=== PATIENT | female | born 1955 | race Caucasian/White ===

== ENCOUNTER 2018-01-14 20:52 | Emergency (ER) | payer BC ==
[2018-01-14 21:05] VITALS: BP 191/84
[2018-01-14] MEDS ORDERED: ONDANSETRON 4 MG TAB.RAPDIS PO ONE (21:27)
--- NOTE | 2018-01-14 21:33 | ER Document Report ---
HPI - HPI Patient complains to provider of: Out of Effexor, Plavix, and blood pressure medications Onset: Other Onset/Duration: Gradual - 2 days Quality of pain: Other - Achy all over Severity: Moderate Pain Level: 3 Context: Patient states she ran out of her Plavix 75 mg p.o. daily losartan 25 mg daily and Effexor 12.5 mg daily 2 days ago. She states running out of the losartan has made her nauseated and vomiting. She states that her doctor has called prescriptions for the Effexor into the local [facility] but she will need the other 2 medications until she can return home. Associated Symptoms: Body/muscle aches, Nausea, Vomiting Exacerbated by: Other Relieved by: Denies Similar symptoms previously: Yes Recently seen / treated by doctor: No - ROS ROS below otherwise negative: Yes - CONSTITUTIONAL Constitutional: DENIES: Fever, Chills - EENT EENT: DENIES: Sore Throat, Ear Pain, Nasal Drainage-Clear, Nasal Drainage- Purulent, Congestion, Eye problems - NEURO Neurology: DENIES: Headache, Weakness, Vision blurred, Dizzinesss / Vertigo - CARDIOVASCULAR Cardiovascular: DENIES: Chest pain - RESPIRATORY Respiratory: DENIES: Trouble Breathing, Coughing - GASTROINTESTINAL Gastrointestinal: DENIES: Abdominal Pain, Nausea, Patient vomiting, Diarrhea, Constipation, Black / Bloody Stools - URINARY Urinary: DENIES: Dysuria, Urgency, Frequency - REPRODUCTIVE Reproductive: DENIES: :, Postmenopausal, Abnormal bleeding / discharge - MUSCULOSKELETAL Musculoskeletal: DENIES: Extremity pain, Back Pain, Neck Pain, Swelling - DERM Skin Color: Normal Skin Problems: None Past Medical History - General Information source: Patient - Social History Smoking Status: Never Smoker Cigarette use (# per day): No Chew tobacco use (# tins/day): No Smoking Education Provided: No Frequency of alcohol use: None Drug Abuse: None Lives with: Family Family History: Reviewed & Not Pertinent Patient has suicidal ideation: No Patient has homicidal ideation: No - Past Medical History Cardiac Medical History: Reports: Hx Hypertension Pulmonary Medical History: Reports: None EENT Medical History: Reports: None Neurological Medical History: Reports: Hx Cerebrovascular Accident Endocrine Medical History: Reports: None Renal/ Medical History: Reports: None Malignancy Medical History: Reports: None GI Medical History: Reports: None Musculoskeletal Medical History: Reports None Skin Medical History: Reports None Psychiatric Medical History: Reports: Hx Depression Traumatic Medical History: Reports: None Infectious Medical History: Reports: None Past Surgical History: Reports: Hx Cardiac Catheterization, Hx Section , Hx Tonsillectomy, Hx Umbilical Hernia - Immunizations Immunizations up to date: Yes Vertical Provider Document - CONSTITUTIONAL Agree With Documented VS: Yes Exam Limitations: No Limitations General Appearance: WD/WN, Mild Distress - INFECTION CONTROL TRAVEL OUTSIDE OF THE [place] IN LAST 30 DAYS: No - HEENT HEENT: Atraumatic, Normocephalic, PERRLA - RESPIRATORY Respiratory: Breath Sounds Normal, No Respiratory Distress - CARDIOVASCULAR Cardiovascular: Regular Rate, Regular Rhythm - GI/ABDOMEN Gastrointestinal: Abdomen Soft, Abdomen Non-Tender - NEURO Level of Consciousness: Awake, Alert, Appropriate Motor/Sensory: No Motor Deficit, No Sensory Deficit - DERM Integumentary: Warm, Dry, No Rash Course - Re-evaluation Re-evalutation: 01/14/18 21:33 Patient was given Zofran in the ED for her nausea and vomiting. Son-in-law was sent to the [facility] immediately so that he could get the prescriptions before walking closes at 10:00. Patient will be kept in the emergency room until we ensure the patient gets her medications tonight. - Vital Signs Vital signs: Temp Pulse Resp BP Pulse Ox 97.5 F 67 16 191/84 H 99 01/14/18 21:01 01/14/18 21:01 01/14/18 21:01 01/14/18 21:01 01/14/18 21:01 Discharge - Discharge Clinical Impression: Has run out of medications Condition: Stable Disposition: HOME, SELF-CARE Additional Instructions: You state you ran out of your Plavix 75 mg p.o. daily, losartan 25 mg daily, and Effexor 2 days ago. Your physician has called a prescription for your Effexor and I will give you a dose of your losartan and Plavix. I will give you a prescription for 3 days worth of these medications to last you until you return home to [place] FOLLOW-UP CARE: If you have been referred to a physician for follow-up care, call the physician s office for an appointment as you were instructed or within the next two days. If you experience worsening or a significant change in your symptoms, notify the physician immediately or return to the Emergency Department at any time for re-evaluation. Prescriptions: Clopidogrel Bisulfate [Plavix 75 mg Tablet] 75 mg PO DAILY #3 tablet Losartan Potassium [Cozaar] 25 mg PO DAILY #3 tablet Forms: Elevated Blood Pressure
[2018-01-14] MEDS ORDERED: CLOPIDOGREL BISULFATE 75 MG TABLET PO ONE (21:51)
[2018-01-14] MEDS ORDERED: LOSARTAN POTASSIUM 25 MG TABLET PO ONE (21:51)
[2018-01-14] MEDS ORDERED: ONDANSETRON ODT 4 MG TAB (6 TAB/ER DISP) PO PRN (21:54)
== END 2018-01-14 22:00 | disposition home or self-care (01) ==
LOC: ER 20:52
DX: Z76.0 Encounter for issue of repeat prescription (principal); M79.10 Myalgia, unspecified site; R11.2 Nausea with vomiting, unspecified; I10 Essential (primary) hypertension
CPT/HCPCS: 99281; S0119